=== PATIENT | female | born 1940 | race Caucasian/White ===

== ENCOUNTER 2024-09-08 13:58 | Outpatient (AMB) | payer MEDICARE, SELFPAY ==
--- NOTE | 2024-09-08 14:05 | MHC.PC.OV ---
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 Allergies adhesive tape Allergy (Verified 09/08/24 14:14) Rash Fall risk assessment: 1 Fall in past year Last assessed Fall Risk: 09/08/24 Dental Screening Dental Screen Date: 09/08/24 Did you have a dental visit in the last 12 months?: Yes Did you have a dental problem in the last 6 months where you did not have access to dental care?: No Was dental information given to patient?: Patient has dentist HPI HPI Comments History of Present Illness Details This is an 84-year-old female with a past medical history of breast cancer, persistent atrial fibrillation, hypothyroidism, depression with anxiety, hypertension, hyperlipidemia and impaired fasting glucose presenting to establish care. She transferred from Dr. Collin Pichardo in [place]. No prior records available today. She is signing a release form. Her 28 years ago, and she said she has had depression with anxiety her entire life. She is currently on clonazepam 0.5 mg daily which helps her at night with anxiety and sleep. She can not sleep if she does not take it. She saw a psychiatrist, but it was many years ago. She would like to see a psychiatrist again and a therapist. Denies psychosis, hallucinations, drug or alcohol abuse. Cardiovascular-history of TIA in 2018. She has persistent atrial fibrillation. 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 Taking Eliquis, enalapril, metoprolol, spironolactone, rosuvastatin. Denies palpitations, chest pain and shortness of breath. Her blood pressure is soft today. She feels fatigued sometimes. Denies lightheadedness or dizziness. History of breast cancer-treated with left mastectomy and 12 years after that had right lumpectomy and radiation. Gets annual mammograms at [facility]. Hypothyroidism treated with levothyroxine 25 mcg daily. She quit smoking 40 years ago. Endorses chronic fullness of the left supraclavicular area for at least 5 years. Nonpainful. No prior imaging. States PCP did exam a couple of times to check it. ROS: Constitutional: No unexplained weight loss, fever, chills or night sweats. Eyes: No vision changes, blurry vision, double vision, eye pain Respiratory: No shortness of breath, cough or sputum production. Cardiovascular: No chest pain, chest pressure or chest discomfort. No palpitations or pedal edema. Gastrointestinal: No anorexia, nausea, vomiting or diarrhea. No abdominal pain or blood in stool. Genitourinary: No dysuria, hematuria, urinary frequency. Neurologic: No headache, dizziness, syncope, unilateral weakness, ataxia, numbness or tingling in the extremities. Hematologic/Lymphatics: No bleeding or bruising. No painful lymph nodes. Psychiatric: see HPI Physical exam: Constitutional: Alert, in no distress. Neck: Supple, Full range of motion. Mild fullness but no firmness or tenderness in the left supraclavicular fossa. No palpable thyroid or neck masses. Respiratory: Clear to auscultation. Cardiovascular: Irregularly irregular rhythm. No murmur. Neurologic: No focal neurological deficits. Extremities: Warm and well perfused. No clubbing, cyanosis or edema. Psychiatric: Normal mood and affect [facility] Medical History (Updated 09/08/24 @ 17:54 by YANELI Weston) Hyperlipidemia Hypertension Supraclavicular fossa fullness Atrial fibrillation IFG (impaired fasting glucose) History of breast cancer Screening for cardiovascular condition Depression with anxiety TIA (transient ischemic attack) Social History Housing: House Patient Tobacco Use Status: Former Tobacco user Cigarette Packs Per Day: 1 Cigarettes Per Day: 3 Years Smoked: 20 e-Cigarette/Vaping Use: Never Used Second Hand Smoke Exposure: No service: No Current occupational status: retired Current occupational exposures/hazards: No Cognitive needs: No Hearing needs: No Vision needs: Yes Questionnaire PHQ-9 Over the last 2 weeks, how often have you been bothered by any of the following problems? 1. Little interest or pleasure in doing things: nearly every day 2. Feeling down, depressed, or hopeless: nearly every day 3. Trouble falling or staying asleep, or sleeping too much: nearly every day 4. Feeling tired or having little energy: nearly every day 5. Poor appetite or overeating: nearly every day 6. Feeling bad about yourself - or that you are a failure or have let yourself or your family down: nearly every day 7. Trouble concentrating on things, such as reading the newspaper or watching television: not at all 8. Moving or speaking so slowly that other people could have noticed. Or the opposite - being so fidgety or restless that you have been moving around a lot more than usual: not at all 9. Thoughts that you would be better off or of hurting yourself in some way: not at all Total score: 18 Depression Screening Interpretation: Positive Depression Screening Follow-up: Other (referred) Depression Screening Done: Yes 02105 - PHQ-9 Billing: Yes Source: Developed by Drs. Jeff Liao, Violeta Taylor, Aime Nguyen and colleagues, with an educational nicci from [email or web address]. Thrive Questionnaire Date Thrive assessed: 09/08/24 I am a: Patient What is your living situation today?: I have a steady place to live Within the past 12 months, did the food you bought not last and you didn't have the money to get more?: Never true Within the past 12 months, did you worry whether your food would run out before you got money to buy more?: Never true Do you have trouble paying for medicines?: No Do you have trouble getting transportation to medical appointments?: No Do you have trouble paying your heating and electricity bill?: No Do you have trouble taking care of your child, family member or friend?: No Do you have trouble with day-to-day activities such as bathing, preparing meals, shopping, managing finances, etc.?: No Are you currently unemployed and looking for a job?: No Are you interested in more education?: No Please select the resources that you would like help with: None Currently or been in a relationship where the following occur: No concerns reported THRIVE Score: 0 AUDIT C Alcohol Use Questionnaire (AUDIT-C) 1. How often do you have a drink containing alcohol?: 2-4 times a month 2. How many drinks containing alcohol do you have on a typical day when you are drinking?: 1 or 2 3. How often do you have six or more drinks on one occasion?: Never Total Score: 2 Score Reviewed/Action Taken: No LIONEL-7 AMB Questionnaire LIONEL-7 Date LIONEL - 7 assessed: 09/08/24 Feeling nervous, anxious, or on edge: 3 = Nearly every day Not being able to stop or control worryin = Nearly every day Worrying too much about different things: 3 = Nearly every day Trouble relaxin = Nearly every day Being so restless that it is hard to sit still: 0 = Not at all Becoming easily annoyed or irritable: 0 = Not at all Feeling afraid as if something awful might happen: 3 = Nearly every day Total LIONEL-7 score (0-4 normal; 5-9 mild; 10-14 moderate; 15-21 severe): 15 Source: Developed by Drs. Jeff Liao, Violeta Taylor, Aime Nguyen and colleagues, with an educational nicci from [email or web address]. Physical exam (Primary Care) Vital Signs: Last Vital Signs Temp 98.6 F 09/08/24 14:21 Pulse 63 09/08/24 14:21 Resp 14 09/08/24 14:21 BP 102/62 09/08/24 14:21 Pulse Ox 96 09/08/24 14:21 Oxygen Delivery Method Room Air 09/08/24 14:21 BMI result Body Mass Index 24.1 Tobacco/Smoking Status: Tobacco use Status Patient Tobacco Use Status Former Tobacco user 09/08/24 14:24 e-Cigarette/Vaping Use Never Used 09/08/24 14:24 PHQ-9: PHQ-9 Score PHQ-9: Total score 18 09/08/24 15:11 Depression Screening Interpretation: Positive Depression Screening Follow-up: Other (referred) Thrive Assessment: Date of Thrive Assessment Date Thrive assessed 09/08/24 09/08/24 14:07 Currently or been in a relationship where the following occur: No concerns reported Coding Level of Care Code New Pt Level 4 (74916) Complex EM visit Add On G2211 Diagnoses TIA (transient ischemic attack) G45.9 Depression with anxiety F41.8 Screening for cardiovascular condition Z13.6 History of breast cancer Z85.3 IFG (impaired fasting glucose) R73.01 Atrial fibrillation I48.91 Supraclavicular fossa fullness R22.2 Hypertension I10 Hyperlipidemia E78.5 Additional Codes PHQ-9 - 72860 - PHQ-9 Billing: Yes ([id number]) Assessment & Plan Assessment & Plan (1) TIA (transient ischemic attack): Code(s): G45.9 - Transient cerebral ischemic attack, unspecified Category: Medical Plan: Continue modification of risk factors including hypertension and hyperlipidemia. She is on Eliquis because she has chronic AFib. Avoid tobacco use and alcohol use. (2) Depression with anxiety: Code(s): F41.8 - Other specified anxiety disorders Category: Medical Plan: Refer to therapy and Psychiatry. I will continue her clonazepam 0.5 mg. She is aware of fall risk with this medicine, but she can not sleep and has worse anxiety without it. She is aware it should not be stopped abruptly as it is habit forming and causes withdrawal if stopped abruptly which can be life-threatening. Advised not to drive, drink alcohol or operate heavy machinery on this medicine. Trial of sertraline 25 mg daily. Reviewed side effects, administration and black box warning. (3) Screening for cardiovascular condition: Code(s): Z13.6 - Encounter for screening for cardiovascular disorders Category: Medical (4) History of breast cancer: Code(s): Z85.3 - Personal history of malignant neoplasm of breast Category: Medical Plan: Followed annually with mammogram at [facility] per patient. Records transfer pending. (5) IFG (impaired fasting glucose): Code(s): R73.01 - Impaired fasting glucose Category: Medical Plan: Check hemoglobin A1c. (6) Atrial fibrillation: Code(s): I48.91 - Unspecified atrial fibrillation Category: Medical Plan: Rate controlled. Continue beta blockade. Anticoagulated on Eliquis. Refer to Cardiology for routine management. (7) Supraclavicular fossa fullness: Code(s): R22.2 - Localized swelling, mass and lump, trunk Category: Medical Plan: This may just be asymmetry of the fat pad, but I will check an ultrasound to be cautious. (8) Hypertension: Code(s): I10 - Essential (primary) hypertension Category: Medical Plan: Blood pressure is soft. Reduce enalapril to 10 mg daily. Continue other medications for blood pressure. (9) Hyperlipidemia: Code(s): E78.5 - Hyperlipidemia, unspecified Category: Medical Plan: Continue statin. Check lipid profile. Plan Follow up in 4 weeks. Orders: Orders TSH reflex Free T4 Today F41.8 - Other specified anxiety disorders, G45.9 - Transient cerebral ischemic attack, unspecified, Z13.6 - Encounter for screening for cardiovascular disorders, Z85.3 - Personal history of malignant neoplasm of breast Lipid Panel Today E78.5 - Hyperlipidemia, unspecified, F41.8 - Other specified anxiety disorders, G45.9 - Transient cerebral ischemic attack, unspecified, Z13.6 - Encounter for screening for cardiovascular disorders, Z85.3 - Personal history of malignant neoplasm of breast Comprehensive Met. Panel Today F41.8 - Other specified anxiety disorders, G45.9 - Transient cerebral ischemic attack, unspecified, Z13.6 - Encounter for screening for cardiovascular disorders, Z85.3 - Personal history of malignant neoplasm of breast Hemoglobin A1c Today R73.01 - Impaired fasting glucose US soft tiss head and/or neck Today R22.2 - Localized swelling, mass and lump, trunk Vitamin D 25-OH (D2 and D3) Today F41.8 - Other specified anxiety disorders, G45.9 - Transient cerebral ischemic attack, unspecified, M85.80 - Other specified disorders of bone density and structure, unspecified site, Z13.6 - Encounter for screening for cardiovascular disorders, Z85.3 - Personal history of malignant neoplasm of breast Complete Blood Count no Diff Today F41.8 - Other specified anxiety disorders, G45.9 - Transient cerebral ischemic attack, unspecified, Z13.6 - Encounter for screening for cardiovascular disorders, Z85.3 - Personal history of malignant neoplasm of breast Referrals Psychiatry Referral F41.8 - Other specified anxiety disorders Psychology Referral F41.8 - Other specified anxiety disorders Cardiology Referral I48.91 - Unspecified atrial fibrillation Medications: New clonazepam (Klonopin) 0.5 mg PO DAILY 30 tabs 0RF enalapril maleate 10 mg PO DAILY 90 tabs 0RF sertraline (Zoloft) 25 mg PO DAILY 90 tabs 0RF
[2024-09-08 14:21] VITALS: BP 102/62; PULSE 63; RESP 14; TEMP 37; O2SAT 96; BMI 24.1
== END 2024-09-08 15:01 | disposition home or self-care (01) ==
LOC: HO.HMCFM 13:59
PROVIDERS: PCP Physician Assistant Medical; Visit Provider Physician Assistant Medical
DX: I48.91 Unspecified atrial fibrillation (principal); G45.9 Transient cerebral ischemic attack, unspecified; F41.8 Other specified anxiety disorders; Z13.6 Encounter for screening for cardiovascular disorders; Z85.3 Personal history of malignant neoplasm of breast; R73.01 Impaired fasting glucose; R22.2 Localized swelling, mass and lump, trunk; I10 Essential (primary) hypertension; E78.5 Hyperlipidemia, unspecified

== ENCOUNTER → 2024-09-08 13:58 | Outpatient (BNVA) | payer MEDICARE, OTHER, SELFPAY | PROVIDERS: PCP Physician Assistant Medical; Visit Provider Physician Assistant Medical | DX: I48.19 Other persistent atrial fibrillation (principal); E03.9 Hypothyroidism, unspecified; F32.A Depression, unspecified; I10 Essential (primary) hypertension; E78.5 Hyperlipidemia, unspecified; R73.01 Impaired fasting glucose; F41.8 Other specified anxiety disorders; I48.91 Unspecified atrial fibrillation; R22.2 Localized swelling, mass and lump, trunk; Z90.12 Acquired absence of left breast and nipple; Z85.3 Personal history of malignant neoplasm of breast; Z79.899 Other long term (current) drug therapy; Z87.891 Personal history of nicotine dependence; Z86.73 Personal history of transient ischemic attack (TIA), and cerebral infarction without residual deficits | CPT/HCPCS: 96127; 99202 ==

== ENCOUNTER 2024-10-23 11:30 | Outpatient (AMB) | payer MEDICARE, OTHER, SELFPAY ==
--- NOTE | 2024-10-23 11:48 | A.OFFPC_ITS ---
Vital Signs 10/23/24 11:53 Height 5 ft 3 in Weight 132 lb BMI 23.4 BP 116/64 Blood Pressure Location Rt brachial Position Sitting Respiration 14 Pulse 95 Pulse Source Pulse Oximeter Temp 97.4 F Temp Source Temporal Artery Scan Pulse Oximetry (%) 99 Oxygen Delivery Method Room Air Intake Visit Reasons: med check and lab review Intake Note: Sheila presents in the office for a medication check and a review of her recent lab results. Allergies adhesive tape Allergy (Verified 10/23/24 11:51) Rash Tobacco use date assessed: 10/23/24 Fall risk assessment: No Falls in past year Last assessed Fall Risk: 10/23/24 Dental Screening Dental Screen Date: 10/23/24 Did you have a dental visit in the last 12 months?: Yes Did you have a dental problem in the last 6 months where you did not have access to dental care?: No Was dental information given to patient?: Patient has dentist HPI HPI Comments History of Present Illness Details This is an 84-year-old female with a past medical history of breast cancer, persistent atrial fibrillation, hypothyroidism, depression with anxiety, hypertension, hyperlipidemia and impaired fasting glucose presenting for follow up. She transferred from Dr. Collin Pichardo in [place]. Her 28 years ago, and she said she has had depression with anxiety her entire life. She is currently on clonazepam 0.5 mg daily which helps her at night with anxiety and sleep. She can not sleep if she does not take it. She saw a psychiatrist, but it was many years ago. She is on a wait list for therapy and Psychiatry now. Denies psychosis, hallucinations, drug or alcohol abuse. She started sertraline 25 mg daily. She denies side effects, but it does not feel that like it is helping. She also does not feel like clonazepam always works, and she wants to switch it to a different medication. She admits that she was taking it sometimes twice a day when she had more anxiety. Cardiovascular-history of TIA in 2018. She has persistent atrial fibrillation. Cardiology appointment is pending. Taking Eliquis, enalapril, metoprolol, spironolactone, rosuvastatin. Denies palpitations, chest pain and shortness of breath. Her blood pressure is normal after reducing the dose of enalapril. History of breast cancer-treated with left mastectomy and 12 years after that had right lumpectomy and radiation. Gets annual mammograms at [facility]. Hypothyroidism treated with levothyroxine 25 mcg daily. She quit smoking 40 years ago. Endorses chronic fullness of the left supraclavicular area for at least 5 years. Nonpainful. No prior imaging. This is stable since her last visit. She has an ultrasound scheduled. She endorses issues with constipation as an older an adult. She tried MiraLax, but it is 2 gritty. Coffee is effective, but it increases anxiety. I recommended she try Benefiber gummies. She denies blood in stools, abdominal pain, fevers or chills. ROS: Constitutional: No unexplained weight loss, fever, chills or night sweats. Eyes: No vision changes, blurry vision, double vision, eye pain Respiratory: No shortness of breath, cough or sputum production. Cardiovascular: No chest pain, chest pressure or chest discomfort. No palpitations or pedal edema. Gastrointestinal: No anorexia, nausea, vomiting or diarrhea. No abdominal pain or blood in stool. Genitourinary: No dysuria, hematuria, urinary frequency. Neurologic: No headache, dizziness, syncope, unilateral weakness, ataxia, numbness or tingling in the extremities. Hematologic/Lymphatics: No bleeding or bruising. No painful lymph nodes. Psychiatric: see HPI Physical exam: Constitutional: Alert, in no distress. Neck: Supple, Full range of motion. Mild fullness but no firmness or tenderness in the left supraclavicular fossa. No palpable thyroid or neck masses. Respiratory: Clear to auscultation. Cardiovascular: Irregularly irregular rhythm. No murmur. Neurologic: No focal neurological deficits. Extremities: Warm and well perfused. No clubbing, cyanosis or edema. Psychiatric: Normal mood and affect [facility] Medical History (Updated 09/08/24 @ 17:54 by YANELI Weston) Hyperlipidemia Hypertension Supraclavicular fossa fullness Atrial fibrillation IFG (impaired fasting glucose) History of breast cancer Screening for cardiovascular condition Depression with anxiety TIA (transient ischemic attack) Social History (Updated 10/23/24 @ 11:53 by Cecy Kwon MA) Housing: House Alcohol intake: current Patient Tobacco Use Status: Former Tobacco user Cigarette Packs Per Day: 1 Cigarettes Per Day: 3 Years Smoked: 20 e-Cigarette/Vaping Use: Never Used Second Hand Smoke Exposure: No service: No Current occupational status: retired Current occupational exposures/hazards: No Cognitive needs: No Hearing needs: No Vision needs: Yes Questionnaire Thrive Questionnaire Date Thrive assessed: 09/08/24 I am a: Patient What is your living situation today?: I have a steady place to live Within the past 12 months, did the food you bought not last and you didn't have the money to get more?: Never true Within the past 12 months, did you worry whether your food would run out before you got money to buy more?: Never true Do you have trouble paying for medicines?: No Do you have trouble getting transportation to medical appointments?: No Do you have trouble paying your heating and electricity bill?: No Do you have trouble taking care of your child, family member or friend?: No Do you have trouble with day-to-day activities such as bathing, preparing meals, shopping, managing finances, etc.?: No Are you currently unemployed and looking for a job?: No Are you interested in more education?: No Please select the resources that you would like help with: None Currently or been in a relationship where the following occur: No concerns reported THRIVE Score: 0 LIONEL-7 AMB Questionnaire LIONEL-7 Date LIONEL - 7 assessed: 09/08/24 Source: Developed by Drs. Jeff Liao, Violeta Taylor, Aime Nguyen and colleagues, with an educational nicci from [employer]. Physical exam (Primary Care) Vital Signs: Last Vital Signs Temp 97.4 F 10/23/24 11:53 Pulse 95 10/23/24 11:53 Resp 14 10/23/24 11:53 BP 116/64 10/23/24 11:53 Pulse Ox 99 10/23/24 11:53 Oxygen Delivery Method Room Air 10/23/24 11:53 BMI result Body Mass Index 23.4 Tobacco/Smoking Status: Tobacco use Status Tobacco use date assessed 10/23/24 10/23/24 11:57 Patient Tobacco Use Status Former Tobacco user 10/23/24 11:53 e-Cigarette/Vaping Use Never Used 10/23/24 11:53 Thrive Assessment: Date of Thrive Assessment Date Thrive assessed 09/08/24 10/23/24 11:51 Currently or been in a relationship where the following occur: No concerns re ported Coding Level of Care Code Est Pt Level 4 (11524) Complex EM visit Add On G2211 Diagnoses TIA (transient ischemic attack) G45.9 Depression with anxiety F41.8 Screening for cardiovascular condition Z13.6 History of breast cancer Z85.3 IFG (impaired fasting glucose) R73.01 Atrial fibrillation I48.91 Supraclavicular fossa fullness R22.2 Hypertension I10 Hyperlipidemia E78.5 Assessment & Plan Assessment & Plan (1) TIA (transient ischemic attack): Code(s): G45.9 - Transient cerebral ischemic attack, unspecified Category: Medical Plan: Continue modification of risk factors including hypertension and hyperlipidemia. She is on Eliquis because she has chronic AFib. Avoid tobacco use and alcohol use. (2) Depression with anxiety: Code(s): F41.8 - Other specified anxiety disorders Category: Medical Plan: She is on a wait list for therapy and Psychiatry. She will switch clonazepam to lorazepam 0.5 mg twice daily as needed, 40 tablets prescribed for 30 days. She is aware of fall risk with this medicine, but she can not sleep and has worse anxiety without it. She is aware it should not be stopped abruptly as it is habit forming and causes withdrawal if stopped abruptly which can be life-threatening. Advised not to drive, drink alcohol or operate heavy machinery on this medicine. Increase sertraline to 50 mg daily. Reviewed side effects, administration and black box warning. (3) Screening for cardiovascular condition: Code(s): Z13.6 - Encounter for screening for cardiovascular disorders Category: Medical (4) History of breast cancer: Code(s): Z85.3 - Personal history of malignant neoplasm of breast Category: Medical Plan: Followed annually with mammogram at [facility] per patient. Records transfer pending. (5) IFG (impaired fasting glucose): Code(s): R73.01 - Impaired fasting glucose Category: Medical Plan: Patient had lab work done at [facility]. Results are pending. (6) Atrial fibrillation: Code(s): I48.91 - Unspecified atrial fibrillation Category: Medical Plan: Rate controlled. Continue beta blockade. Anticoagulated on Eliquis. Cardiology consult is scheduled. (7) Supraclavicular fossa fullness: Code(s): R22.2 - Localized swelling, mass and lump, trunk Category: Medical Plan: This may just be asymmetry of the fat pad, but I will check an ultrasound to be cautious. This is scheduled. (8) Hypertension: Code(s): I10 - Essential (primary) hypertension Category: Medical Plan: Well-controlled. Continue current regimen. (9) Hyperlipidemia: Code(s): E78.5 - Hyperlipidemia, unspecified Category: Medical Plan: Continue statin. Lab results pending. Plan Follow up in 4 weeks. Medications: New lorazepam 0.5 mg PO BID PRN 40 tabs 0RF anxiety sertraline 50 mg PO DAILY 90 tabs 0RF Discontinued clonazepam (Klonopin) Discontinued Reason: Doctor's Order 0.5 mg PO DAILY 30 tabs 0RF sertraline (Zoloft) Discontinued Reason: Doctor's Order 25 mg PO DAILY 90 tabs 0RF
[2024-10-23 11:53] VITALS: BP 116/64; PULSE 95; RESP 14; TEMP 36.3; O2SAT 99; BMI 23.4
== END 2024-10-23 12:30 | disposition home or self-care (01) ==
LOC: HO.HMCFM 11:31
PROVIDERS: PCP Physician Assistant Medical; Visit Provider Physician Assistant Medical
DX: I48.91 Unspecified atrial fibrillation (principal); G45.9 Transient cerebral ischemic attack, unspecified; F41.8 Other specified anxiety disorders; Z13.6 Encounter for screening for cardiovascular disorders; Z85.3 Personal history of malignant neoplasm of breast; R73.01 Impaired fasting glucose; R22.2 Localized swelling, mass and lump, trunk; I10 Essential (primary) hypertension; E78.5 Hyperlipidemia, unspecified

== ENCOUNTER → 2024-10-23 11:30 | Outpatient (BNVA) | payer MEDICARE, OTHER, SELFPAY | PROVIDERS: PCP Physician Assistant Medical; Visit Provider Physician Assistant Medical | DX: F41.8 Other specified anxiety disorders (principal); R73.01 Impaired fasting glucose; I48.20 Chronic atrial fibrillation, unspecified; R22.2 Localized swelling, mass and lump, trunk; I10 Essential (primary) hypertension; E78.5 Hyperlipidemia, unspecified; Z85.3 Personal history of malignant neoplasm of breast; Z86.73 Personal history of transient ischemic attack (TIA), and cerebral infarction without residual deficits; Z79.01 Long term (current) use of anticoagulants; Z79.899 Other long term (current) drug therapy | CPT/HCPCS: 99212 ==

== ENCOUNTER 2025-01-29 14:50 | Outpatient (REF) | payer MEDICARE, OTHER, SELFPAY ==
[2025-01-29 17:31] LABS: MANUAL DIFF FLAG NO
[2025-01-29 17:50] LABS: Hematocrit 40.4 % (37.0-47.0); Hemoglobin 12.8 g/dl (12.0-16.0); Imm Gran Abs Auto 0.05 X10*3/uL (0.00-0.03); Imm Gran Pct Auto 0.5 % (0.0-0.4); Lymphocytes Absolute Auto 1.6 X10*3/uL (1.2-4.9); Mean Corpuscular HGB Conc 31.7 g/dl (31.0-35.0); Mean Corpuscular Hemoglobin 31.1 pg (27.0-33.0); Mean Corpuscular Volume 98.3 fL (80.0-98.0); NRBC Abs Auto 0.000 X10*3/uL (0.0-0.012); NRBC Pct Auto 0.0 /100WBC (0.0-0.2); Platelet Count 250 X10*3/uL (160-400); Red Blood Count 4.11 X10*6/uL (4.20-5.50); White Blood Count 9.6 X10*3/uL (4.8-10.8)
[2025-01-29 17:55] LABS: INTERNATIONAL NORM RATIO 1.1 (0.9-1.1); Prothrombin Time 12.5 SEC (10.9-12.4)
[2025-01-29 18:35] LABS: Anion Gap 12 (12-20); Blood Urea Nitrogen 24 mg/dL (9-16); Calcium 10.4 mg/dL (8.4-10.2); Carbon Dioxide 23 mmol/L (22-29); Chloride 107 mmol/L (96-108); Estimated Glomerular Filt Rate 37; Iron 140 mcg/dL (30-160); Percent Iron Saturation 37 % (15-50); Potassium 4.3 mmol/L (3.3-5.1); Sodium 138 mmol/L (135-145); Total Iron Binding Capacity 377 mcg/dL (228-428); Unsaturated Iron Binding 237 ug/dL
[2025-01-29 18:49] LABS: Ferritin 160 ng/mL (10-250)
[2025-01-29 19:04] LABS: Folate 12.7 ng/mL (> or = 4.0); Vitamin B12 265 pg/mL (200-900)
[2025-02-02 15:47] LABS: Vitamin D 25-OH, D2 <4 ng/mL; Vitamin D 25-OH, D3 36 ng/mL; Vitamin D 25-OH, Total 36 ng/mL (30-100)
== END 2025-01-29 14:51 | disposition home or self-care (01) ==
LOC: HO.WFDLDS 14:50
PROVIDERS: PCP Physician Assistant Medical; Visit Provider Physician Assistant Medical
DX: Z51.81 Encounter for therapeutic drug level monitoring (principal); I12.9 Hypertensive chronic kidney disease with stage 1 through stage 4 chronic kidney disease, or unspecified chronic kidney disease; N18.32 Chronic kidney disease, stage 3b; R79.89 Other specified abnormal findings of blood chemistry; D64.9 Anemia, unspecified; D75.89 Other specified diseases of blood and blood-forming organs; M85.80 Other specified disorders of bone density and structure, unspecified site; G45.9 Transient cerebral ischemic attack, unspecified; F41.8 Other specified anxiety disorders; R73.01 Impaired fasting glucose; R22.2 Localized swelling, mass and lump, trunk; E78.00 Pure hypercholesterolemia, unspecified; Z79.899 Other long term (current) drug therapy; Z87.891 Personal history of nicotine dependence; Z79.01 Long term (current) use of anticoagulants; Z79.890 Hormone replacement therapy; Z85.3 Personal history of malignant neoplasm of breast
CPT/HCPCS: 36415; 80048; 82306; 82607; 82728; 82746; 83540; 85025; 85610; 99212

== ENCOUNTER 2025-01-29 14:50 | Outpatient (AMB) | payer MEDICARE, OTHER, SELFPAY ==
--- NOTE | 2025-01-29 15:05 | MHC.PC.OV ---
Vital Signs 01/29/25 15:09 Height 5 ft 3 in Weight 139 lb 8 oz BMI 24.7 BP 114/60 Blood Pressure Location Rt brachial Position Sitting Respiration 14 Pulse 89 Pulse Source Pulse Oximeter Temp 97.3 F Temp Source Temporal Artery Scan Pulse Oximetry (%) 100 Oxygen Delivery Method Room Air Intake Visit Reasons: med check Intake Note: Sheila presents in the office today for a medication check. Patient no longer taking Sertraline as it was causing constipation and she did not really see a benefit to taking it. Allergies adhesive tape Allergy (Verified 01/29/25 15:07) Rash Medication List - Last Reconciled 01/30/25 by YANELI Weston apixaban (Eliquis) 2.5 mg PO BID enalapril maleate 10 mg PO DAILY levothyroxine 25 mcg PO DAILY lorazepam 0.5 mg PO BID PRN metoprolol tartrate 25 mg PO DAILY rosuvastatin 40 mg PO DAILY spironolactone 25 mg PO DAILY Tobacco use date assessed: 01/29/25 Dental Screening Dental Screen Date: 01/29/25 Did you have a dental visit in the last 12 months?: Yes Did you have a dental problem in the last 6 months where you did not have access to dental care?: No Was dental information given to patient?: Patient has dentist HPI HPI Comments History of Present Illness Details This is an 84-year-old female with a past medical history of breast cancer, persistent atrial fibrillation, hypothyroidism, depression with anxiety, hypertension, hyperlipidemia and impaired fasting glucose presenting for follow up. She transferred from Dr. Collin Pichardo in [place]. Reports she is having 3 teeth extracted on 02/12/[address] Hooks. We have faxed back her dental clearance form and instructions for holding/restarting Eliquis. She has an upcoming appointment with Cardiology. History of TIA in 2018. History of persistent atrial fibrillation. Taking Eliquis, enalapril, metoprolol, spironolactone and rosuvastatin. Denies chest pain, shortness of breath, palpitations, dizziness or syncope. Anxiety and depression-Her 28 years ago, and she said she has had depression with anxiety her entire life. Previously on clonazepam but now taking lorazepam 0.5 mg twice daily as needed. It helps with sleep. She did speak with a therapist, but it was not the right fit. She is going to follow back up with [facility] to find another therapist because she does want to pursue it. She is on a wait list for a psychiatrist. She tried sertraline, but she stopped it because she did not like how it made her feel and found it ineffective. History of breast cancer-treated with left mastectomy and 12 years after that had right lumpectomy and radiation. Gets annual mammograms at [facility]. Hypothyroidism treated with levothyroxine 25 mcg daily. She quit smoking 40 years ago. She endorsed fullness in the left supraclavicular area for the past 5 years which was nonpainful. Her ultrasound is scheduled. Reviewed labs from September. She had mild hypercalcemia. She also has CKD. Patient says that she did know about CKD but had forgot to report this in her medical history. She is agreeable to see a cook mess. Her vitamin-D level was 25.3. She also had macrocytosis with mildly decreased red blood cell count. She has impaired fasting glucose with a normal hemoglobin A1c of 5.6%. Her TSH is normal. ROS: Constitutional: No unexplained weight loss, fever, chills or night sweats. Eyes: No vision changes, blurry vision, double vision, eye pain Respiratory: No shortness of breath, cough or sputum production. Cardiovascular: No chest pain, chest pressure or chest discomfort. No palpitations or pedal edema. Gastrointestinal: No anorexia, nausea, vomiting or diarrhea. No abdominal pain or blood in stool. Genitourinary: No dysuria, hematuria, urinary frequency. Neurologic: No headache, dizziness, syncope, unilateral weakness, ataxia, numbness or tingling in the extremities. Hematologic/Lymphatics: No bleeding or bruising. No painful lymph nodes. Psychiatric: see HPI Physical exam: Constitutional: Alert, in no distress. Neck: Supple, Full range of motion. Mild fullness but no firmness or tenderness in the left supraclavicular fossa. No palpable thyroid or neck masses. Respiratory: Clear to auscultation. Cardiovascular: Irregularly irregular rhythm. Normal rate. No murmur. Neurologic: No focal neurological deficits. Extremities: Warm and well perfused. No clubbing, cyanosis or edema. Psychiatric: Normal mood and affect [facility] Medical History (Updated 01/30/25 @ 12:39 by YANELI Weston) Macrocytic High serum calcium Stage 3b chronic kidney disease (CKD) Hyperlipidemia Hypertension Supraclavicular fossa fullness Atrial fibrillation IFG (impaired fasting glucose) History of breast cancer Screening for cardiovascular condition Depression with anxiety TIA (transient ischemic attack) Social History (Updated 01/29/25 @ 15:09 by Cecy Kwon CMA) Housing: House Alcohol intake: current Patient Tobacco Use Status: Former Tobacco user Cigarette Packs Per Day: 1 Cigarettes Per Day: 3 Years Smoked: 20 e-Cigarette/Vaping Use: Never Used Second Hand Smoke Exposure: No service: No Current occupational status: retired Current occupational exposures/hazards: No Cognitive needs: No Hearing needs: No Vision needs: Yes Questionnaire Thrive Questionnaire Date Thrive assessed: 09/08/24 I am a: Patient What is your living situation today?: I have a steady place to live Within the past 12 months, did the food you bought not last and you didn't have the money to get more?: Never true Within the past 12 months, did you worry whether your food would run out before you got money to buy more?: Never true Do you have trouble paying for medicines?: No Do you have trouble getting transportation to medical appointments?: No Do you have trouble paying your heating and electricity bill?: No Do you have trouble taking care of your child, family member or friend?: No Do you have trouble with day-to-day activities such as bathing, preparing meals, shopping, managing finances, etc.?: No Are you currently unemployed and looking for a job?: No Are you interested in more education?: No Please select the resources that you would like help with: None Currently or been in a relationship where the following occur: No concerns reported THRIVE Score: 0 LIONEL-7 AMB Questionnaire LIONEL-7 Date LIONEL - 7 assessed: 09/08/24 Source: Developed by Drs. Jeff Liao, Violeta Taylor, Aime Nguyen and colleagues, with an educational nicci from [employer]. Physical exam (Primary Care) Vital Signs: Last Vital Signs Temp 97.3 F 01/29/25 15:09 Pulse 89 01/29/25 15:09 Resp 14 01/29/25 15:09 BP 114/60 01/29/25 15:09 Pulse Ox 100 01/29/25 15:09 Oxygen Delivery Method Room Air 01/29/25 15:09 BMI result Body Mass Index 24.7 Tobacco/Smoking Status: Tobacco use Status Tobacco use date assessed 01/29/25 01/29/25 15:12 Patient Tobacco Use Status Former Tobacco user 01/29/25 15:09 e-Cigarette/Vaping Use Never Used 01/29/25 15:09 Thrive Assessment: Date of Thrive Assessment Date Thrive assessed 09/08/24 01/29/25 15:07 Currently or been in a relationship where the following occur: No concerns reported Coding Level of Care Code Est Pt Level 4 (51983) Complex EM visit Add On G2211 Diagnoses Stage 3b chronic kidney disease (CKD) N18.32 High serum calcium R79.89 TIA (transient ischemic attack) G45.9 Depression with anxiety F41.8 History of breast cancer Z85.3 IFG (impaired fasting glucose) R73.01 Persistent atrial fibrillation I48.19 Atrial fibrillation type: persistent (not longstanding) Supraclavicular fossa fullness R22.2 Primary hypertension I10 Hypertension type: primary hypertension Pure hypercholesterolemia E78.00 Hyperlipidemia type: pure hypercholesterolemia Macrocytic D75.89 Assessment & Plan Assessment & Plan (1) Stage 3b chronic kidney disease (CKD): Code(s): N18.32 - Chronic kidney disease, stage 3b Category: Medical Plan: Refer to nephrology. Avoid nephrotoxic medications. Stay well hydrated. (2) High serum calcium: Code(s): R79.89 - Other specified abnormal findings of blood chemistry Category: Medical Plan: Recheck calcium. Ordered bone density exam. (3) TIA (transient ischemic attack): Code(s): G45.9 - Transient cerebral ischemic attack, unspecified Category: Medical Plan: Continue modification of risk factors including hypertension and hyperlipidemia. She is on Eliquis because she has chronic AFib. Avoid tobacco use and alcohol use. (4) Depression with anxiety: Code(s): F41.8 - Other specified anxiety disorders Category: Medical Plan: She is following backup to find a different therapist, and she is on a wait list for Psychiatry. Continue lorazepam 0.5 mg twice daily as needed. Advised not to drive or operate heavy machinery as a medication can cause sedation and drowsiness. Advised not to stop the medication abruptly due to the risk of withdrawal. (5) History of breast cancer: Code(s): Z85.3 - Personal history of malignant neoplasm of breast Category: Medical Plan: Followed annually with mammogram at [facility] per patient. (6) IFG (impaired fasting glucose): Code(s): R73.01 - Impaired fasting glucose Category: Medical Plan: Normal hemoglobin A1c. (7) Atrial fibrillation: Code(s): I48.91 - Unspecified atrial fibrillation Category: Medical Qualifiers: Atrial fibrillation type: persistent (not longstanding) Qualified Code(s): I48.19 - Other persistent atrial fibrillation Plan: Rate controlled. Continue beta blockade. Anticoagulated on Eliquis. Cardiology consult is scheduled. (8) Supraclavicular fossa fullness: Code(s): R22.2 - Localized swelling, mass and lump, trunk Category: Medical Plan: This may just be asymmetry of the fat pad, but I will check an ultrasound to be cautious. This is scheduled. (9) Hypertension: Code(s): I10 - Essential (primary) hypertension Category: Medical Qualifiers: Hypertension type: primary hypertension Qualified Code(s): I10 - Essential (primary) hypertension Plan: Well-controlled. Continue current regimen. (10) Hyperlipidemia: Code(s): E78.5 - Hyperlipidemia, unspecified Category: Medical Qualifiers: Hyperlipidemia type: pure hypercholesterolemia Qualified Code(s): E78.00 - Pure hypercholesterolemia, unspecified Plan: Continue statin. (11) Macrocytic: Code(s): D75.89 - Other specified diseases of blood and blood-forming organs Category: Medical Plan: Check labs-see detailed list below. Plan Follow up in 4 weeks. Orders: Orders Basic Metabolic Panel 01/29/25 N18.32 - Chronic kidney disease, stage 3b, R79.89 - Other specified abnormal findings of blood chemistry Prothrombin Time INR 01/29/25 N18.32 - Chronic kidney disease, stage 3b, R79.89 - Other specified abnormal findings of blood chemistry, Z79.01 - superintendent container terminal (current) use of anticoagulants Vitamin B12 and Folate 01/29/25 D64.9 - Anemia, unspecified, D75.89 - Other specified diseases of blood and blood-forming organs Complete Blood Count Auto Diff 01/29/25 D75.89 - Other specified diseases of blood and blood-forming organs Ferritin 01/29/25 D64.9 - Anemia, unspecified, D75.89 - Other specified diseases of blood and blood-forming organs IRON PROFILE 01/29/25 D64.9 - Anemia, unspecified, D75.89 - Other specified diseases of blood and blood-forming organs XR DEXA axial skeleton 01/29/25 Z78.0 - Asymptomatic menopausal state Vitamin D 25-OH (D2 and D3) 01/29/25 M85.80 - Other specified disorders of bone density and structure, unspecified site Referrals Nephrology Referral N18.32 - Chronic kidney disease, stage 3b Medications: Changed From apixaban (Eliquis) 2.5 mg PO ONCE 180 tabs 3RF To apixaban (Eliquis) 2.5 mg PO BID
[2025-01-29 15:09] VITALS: BP 114/60; PULSE 89; RESP 14; TEMP 36.3; O2SAT 100; BMI 24.7
== END 2025-01-29 15:49 | disposition home or self-care (01) ==
LOC: HO.HMCFM 14:51
PROVIDERS: PCP Physician Assistant Medical; Visit Provider Physician Assistant Medical
DX: I12.9 Hypertensive chronic kidney disease with stage 1 through stage 4 chronic kidney disease, or unspecified chronic kidney disease (principal); N18.32 Chronic kidney disease, stage 3b; I48.19 Other persistent atrial fibrillation; R79.89 Other specified abnormal findings of blood chemistry; G45.9 Transient cerebral ischemic attack, unspecified; F41.8 Other specified anxiety disorders; Z85.3 Personal history of malignant neoplasm of breast; R73.01 Impaired fasting glucose; R22.2 Localized swelling, mass and lump, trunk; E78.00 Pure hypercholesterolemia, unspecified; D75.89 Other specified diseases of blood and blood-forming organs